=== PATIENT | male | born 1955 | race Caucasian/White ===

== ENCOUNTER 2017-06-02 10:40 | Outpatient (CLI) | payer MEDICARE ==
[2017-06-02] MEDS ORDERED: Gadobenate Dimeglumine 529 MG/1 ML (20ML VIAL) ONE (14:36)
== END 2017-06-02 10:41 | disposition home or self-care (01) ==
LOC: BICMRI 10:40
PROVIDERS: ATTEND Internal Medicine Hematology & Oncology
DX: C71.8 Malignant neoplasm of overlapping sites of brain (principal); G93.89 Other specified disorders of brain; H74.8X2 Other specified disorders of left middle ear and mastoid; Z98.890 Other specified postprocedural states
CPT/HCPCS: 70553; A9579

== ENCOUNTER 2017-09-29 10:21 | Outpatient (CLI) | payer MEDICARE ==
[2017-09-29] MEDS ORDERED: Gadobenate Dimeglumine 529 MG/1 ML (20ML VIAL) ONE (14:45)
== END 2017-09-29 10:22 | disposition home or self-care (01) ==
LOC: BICMRI 10:21
PROVIDERS: ATTEND Internal Medicine Hematology & Oncology
DX: C71.8 Malignant neoplasm of overlapping sites of brain (principal); G93.9 Disorder of brain, unspecified
CPT/HCPCS: 70553; A9579

== ENCOUNTER 2017-10-16 08:00 | Outpatient (CLI) | payer MEDICARE ==
--- NOTE | 2017-10-16 11:28 | PET ---
PET WITH CT WHOLE BODY: CLINICAL HISTORY: Melanoma. The patient also has a history of treated intracranial malignancy. COMPARISON: No prior PET CT imaging available for comparison. RADIOPHARMACEUTICAL: Fluorine-18 FDG 12.3 millicuries IV. FINDINGS: There is appropriate biodistribution of radiotracer activity. There is asymmetric decreased metabolic activity involving the left cerebral hemisphere, compatible w ith sequelae from prior surgery, as well as prior radiation therapy. There are no hypermetabolic masses or hypermetabolic adenopathy identified from the level of the vert ex to the feet. An IVC filter is present, infrarenal in location. There are patchy opacities of the lungs bilaterall y, likely due to respiratory motion artifact. Mild vascular calcification is present. There is osse ous degenerative change without hypermetabolic activity of the skeletal system. IMPRESSION: 1. There is no scintigraphic evidence of hypermetabolic dermal lesions or metastatic disease. 2. Asymmetric decreased metabolism of the left cerebral hemisphere, related to prior surgery/treatme nt of the patient's previously diagnosed intracranial malignancy. POS: VERNON
== END 2017-10-16 08:01 | disposition home or self-care (01) ==
LOC: PET 08:00
PROVIDERS: ATTEND Internal Medicine Hematology & Oncology
DX: C71.8 Malignant neoplasm of overlapping sites of brain (principal); C43.39 Malignant melanoma of other parts of face
CPT/HCPCS: 78816; A9552

== ENCOUNTER 2017-12-09 13:38 | Outpatient (CLI) | payer MEDICARE ==
[~2017-12-09 13:38] MED LIST: Gadobenate Dimeglumine 529 MG/1 ML (20ML VIAL) ONE
--- NOTE | 2017-12-09 16:10 | MRI ---
MRI BRAIN WITH AND WITHOUT CONTRAST: DATE: 12-09-17 HISTORY: 62-year-old male with history of C71.8 malignant neoplasm, overlapping sites of brain. COMPARISON: 10-28-17 at [facility], 09-29-17 from former [facility]. TECHNIQUE: Multiple sequences obtained in axial, sagittal, and coronal planes; pre and post IV injection of gado linium-based contrast agent: 18 ml of MultiHance. FINDINGS: On the 09-29-17 MRI, there was a small focus of restricted diffusion with T2 and FLAIR hyperintensity, with hemosiderin stain, and faint rim enhancement, located in the anterior inferior aspect of the fr ontal lobe superior to the left orbital gyrus and inferior to the frontal horn of the left lateral ve ntricle. By the time of the 10-28-17 MRI, this lesion had contracted slightly. Now, it has contracted more and is difficult to identify on T2 WI and FLAIR. It no longer has an intrinsic T1 shortening. It is demonstrated on the gradient echo sequence by small hemosiderin stain (Axial 14 of 28, Series 4). It has a small, irregularly shaped enhancement, which has contracted since 10-28-17 and contracted mo re since 09-29-17. Again noted are the left temporoparietal old craniotomy changes. Again noted is the architectural dis tortion, extensive T2 and FLAIR hyperintense signal, and associated stellate, lace-like enhancement, involving the anterior portion of the left temporal lobe, with associated chronic distortion of the l eft cerebral peduncle, and ex vacuo dilation of the trigone of the left lateral ventricle. Much of th e T2 hyperintense signal in this area represents accelerated ischemic demyelination due to post radia tion changes. Large, confluent region of asymmetrically left sided accelerated demyelination involvi ng the left caldwell radiata and left semiovale, are again noted and stable. In addition to these T2 hyperintense chronic type changes, there is also moderate T2 hyperintensity i nvolving moderate sized region of left anterior left temporal lobe, associated with thickened brain p arenchyma (best visualized on axial FLAIR Image 9 of 31, Series 2). 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 There is no new areas of abnormal enhancement. No obstructive hydrocephalus. No mass effect or midlin e shift. No extraaxial fluid collection. IMPRESSION: 1. Post-surgical changes of left temporal lobe. 2. Post radiation changes of left temporal lobe and large regions of left caldwell radiata and left buck iovale. 3. The tiny, subcentimeter focus of previous hemorrhage and enhancement, continues to involute. It ma y represent a tiny old lacunar infarction that has undergone hemorrhagic transformation, although the location is unusual for that. The other possibility is that it could have been a tiny metastatic dep osit from the patient's known melanoma that has responded to treatment. 4. Moderate sized region of mild signal abnormality and abnormal parenchymal thickening involving olivia ost the entire anterior portion of the left temporal lobe. 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 MR spectroscopy (performed at a facilit y that performs MRS) would be useful in distinguishing gliomatous tissue from gliosis. 5. No acute findings. MARYJANE Veras POS: VERNON
== END 2017-12-09 13:39 | disposition home or self-care (01) ==
LOC: TBSIIMAG 13:38
PROVIDERS: ATTEND Internal Medicine Hematology & Oncology
DX: C71.8 Malignant neoplasm of overlapping sites of brain (principal); I61.8 Other nontraumatic intracerebral hemorrhage; Z98.890 Other specified postprocedural states; Z92.3 Personal history of irradiation
CPT/HCPCS: 70553; 82565; A9579

== ENCOUNTER 2018-03-18 14:21 | Outpatient (CLI) | payer MEDICARE ==
--- NOTE | 2018-03-18 18:11 | MRI ---
MRI BRAIN WITH AND WITHOUT CONTRAST: DATE: 03/18/18 HISTORY: 62-year-old male with history of C71.8 - malignant neoplasm of overlapping sites of brain. COMPARISON: 12/09/17 TECHNIQUE: Multiple sequences obtained in axial, sagittal, and coronal planes; pre and post IV injection of gado linium-based contrast agent: 18 mL Multihance. FINDINGS: At the anterior inferior aspect of the left frontal lobe just inferior to the frontal horn of the lef t lateral ventricle and slightly superior to the left orbital gyrus, the previously described small, irregularly shaped focus of enhancement and associated tiny hemosiderin stain, has involuted further, and is currently inconspicuous. Again noted are the left temporoparietal old craniotomy changes. Again noted is the architectural dis tortion, extensive T2 and FLAIR hyperintense signal, and associated stellate, lace-like enhancement, involving the anterior portion of the left temporal lobe, with associated chronic architectural disto rtion of the left cerebral peduncle, and ex vacuo dilation of the trigone of the left lateral ventric le. Much of the T2-hyperintense signal in this area represents accelerated ischemic demyelination due to post radiation changes. Large, confluent region of asymmetrically left sided accelerated demyelin ation involving the left caldwell radiata and left centrum semiovale, are again noted, and is stable. In addition to these T2-hyperintense chronic-type changes, there is also moderate T2 hyperintensity d iffusely involving a moderate sized region of the left anterior temporal lobe, associated with thicke joni brain parenchyma (best visualized on axial FLAIR image 9 of 31, series 2, which is suspicious for residual low grade glioma component (astrocytoma)). There is no new area of abnormal enhancement. No obstructive hydrocephalus. No mass effect or midline shift. IMPRESSION: 1. Postsurgical changes of the left temporal lobe. 2. Post radiation changes of the left temporal lobe and large regions of the left caldwell radiata and left centrum semiovale. 3. The tiny, subcentimeter focus of previously described hemorrhage and enhancement in the anter ior inferior aspect of the left frontal lobe, has further involuted (please see the impression of the prior report of 12/09/17). 4. A moderate sized region of diffusely mild signal abnormality and abnormal parenchymal thicken ing involving almost the entire anterior portion of the left temporal lobe. This is suspicious for in dolent, low grade glioma (i.e. grade 2 astrocytoma) tissue component of the original tumor. MR spectr oscopy (performed at a facility that performs [facility]) may be useful to distinguish glioma from gliosis. 5. No new lesions. No evidence of progression of neoplasm since 12/09/17. MARYJANE Veras POS: Elena
== END 2018-03-18 14:22 | disposition home or self-care (01) ==
LOC: TBSIIMAG 14:21
PROVIDERS: ATTEND Internal Medicine Hematology & Oncology
DX: C71.8 Malignant neoplasm of overlapping sites of brain (principal); C43.39 Malignant melanoma of other parts of face; I61.1 Nontraumatic intracerebral hemorrhage in hemisphere, cortical; R93.89 Abnormal findings on diagnostic imaging of other specified body structures; Z98.890 Other specified postprocedural states
CPT/HCPCS: 70553; A9579

== ENCOUNTER 2018-08-05 09:25 | Outpatient (CLI) | payer MEDICARE ==
[2018-08-05] MEDS ORDERED: Gadobenate Dimeglumine 529 MG/1 ML (20ML VIAL) ONE (11:36)
--- NOTE | 2018-08-05 11:55 | MRI ---
MRI BRAIN WITH AND WITHOUT CONTRAST: DATE: 08/05/2018 HISTORY: 62-year-old male with history of intracranial malignant brain tumor C 71.8, malignant neoplasm of ove rlapping sites of brain. 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 COMPARISON: 03/18/2018 TECHNIQUE: Multiplanar, multisequence MRI of the brain performed pre- and post-IV injection of gadolinium based contrast agent. FINDINGS: At the anterior inferior aspect of the left frontal lobe just inferior to the frontal horn of the lef t lateral ventricle and slightly superior to the left orbital gyrus, the previously described small, irregularly-shaped focus of enhancement and associated tiny hemosiderin stain, is inconspicuou s and minimal. It is unchanged since 03/18/2018, and has involuted since 12/09/2017. Again noted are the left temporoparietal old craniotomy changes. Again noted is the architectural dis tortion, extensive T2 and FLAIR hyperintense signal, and associated stellate, lace-like enhancement consistent with scar tissue, involving the anterior portion of the left temporal lobe, with associate d chronic architectural distortion of the left cerebral peduncle, and ex vacuo dilation of the trigone of the left lateral ventricle. Much of the T2 hyperintense signal in this area represent accelerated ischemic demyelination due to p rior external beam radiation therapy. This also applies to the large confluent region of asymmetrically left-sided accelerated demyelination involving the left caldwell radiata and left centru m semiovale. In addition to these T2-hyperintense chronic-type changes, there is also moderate T2-hyperintense sig nal abnormality of a moderate-sized region involving the left anterior temporal lobe., With associated thickening of brain parenchyma. This was previously stated as being suspicious for low-gra de glioma component (astrocytoma), but now it appears possible that it may instead represent very gliotic brain tissue, because there has been interval further enlargement of the gyri of this region, associated with slight decrease in volume of this abnormal brain parenchymal tissue. This is the only interval change compared to 03/18/2018. IMPRESSION: 1) interval shrinkage of the previously concerning left anterior temporal lobe abnormal brain tissue. This suggests that it may be gliotic tissue rather than low-grade gliomatous tissue. 2) no other interval change. 3) postsurgical changes of left temporal lobe. 4) post radiation changes of left temporal lobe and large regions of left cerebral deep white matter. 5) no new lesions.
== END 2018-08-05 09:26 | disposition home or self-care (01) ==
LOC: TBSIIMAG 09:25
PROVIDERS: ATTEND Internal Medicine Hematology & Oncology
DX: C43.39 Malignant melanoma of other parts of face (principal); C71.8 Malignant neoplasm of overlapping sites of brain; R90.89 Other abnormal findings on diagnostic imaging of central nervous system; Z98.890 Other specified postprocedural states
CPT/HCPCS: 70553; A9577

== ENCOUNTER 2019-01-27 09:51 | Outpatient (CLI) | payer MEDICARE ==
--- NOTE | 2019-01-27 11:14 | MRI ---
MRI Brain WITH AND WITHOUT CONTRAST: DATE: 01/27/2019. TIME: 12:00 AM. CLINICAL HISTORY: Malignant neoplasm of brain.. COMPARISON: 08/05/2018. FINDINGS: Postoperative distortion of the left middle cranial fossa is again demonstrated with associated ex va cuo ventricular dilatation and postsurgical encephalomalacia. There is persistent signal alteration of the left temporal lobe, and surrounding enhancement predominantly about the dura in a leptomeninge al distribution with the persistent enhancement invaginating into the surgical bed of the left middle cranial fossa, as well. This has slightly increased, including a new focus of enhancement robert cent the left insular cortex. There is linear enhancement of the right paramedian sol, with surrounding signal alteration, which has developed. Stable increased T2 signal of the cerebral white matter, notably the left cerebral hemisphere. IMPRESSION: 1. Interval development of enhancing focus of the right paramedian sol. 2. Redemonstration of postoperative resection at the left middle cranial fossa with associated signa l alteration of the left temporal lobe and surrounding enhancement, which has slightly increased, including a new focus of enhancement adjacent the left insular cortex. 3. Recommend continued imaging follow-up. Transcribed Date/Time: 01/27/2019 11:23 AM
[2019-01-27] MEDS ORDERED: Magnevist 469MG/ML 20 ML VIAL ONE (11:50)
== END 2019-01-27 09:52 | disposition home or self-care (01) ==
LOC: TBSIIMAG 09:51
PROVIDERS: ATTEND Internal Medicine Hematology & Oncology
DX: C71.8 Malignant neoplasm of overlapping sites of brain (principal); C43.39 Malignant melanoma of other parts of face; R53.1 Weakness; M62.81 Muscle weakness (generalized); Z98.890 Other specified postprocedural states
CPT/HCPCS: 70553; A9579

== ENCOUNTER 2019-02-27 22:30 | Inpatient (IN) | payer MEDICARE ==
[2019-02-27 23:08] LABS: #Eosinphils 0.1 thou/uL (0.0-0.7); #Neutrophils 4.5 thou/uL (1.40-6.50); %Basophils 0.2 % (0.0-1.0); %Eosinophils 1.3 % (0.0-10.0); %Lymphocytes 26.7 % (21.0-51.0); %Monocytes 12.6 % (0.0-10.0); %Neutrophils 59.2 % (42.0-75.0); Hemoglobin 14.4 g/dL (14.0-18.0); Mean Corpuscular HGB CONC 33.2 g/dL (32.0-36.0); Mean Corpuscular Hemoglobin 31.1 pg (27.0-31.0); Mean Corpuscular Volume 93.8 fL (78.0-98.0); Platelet Count 260 thou/uL (130-400); RBC Distribution Width 12.3 % (11.5-14.5); Red Blood Cell (RBC) Count 4.64 mill/uL (4.70-6.10); White Blood Cell (WBC) Count 7.6 thou/uL (4.8-10.8)
[2019-02-27 23:19] LABS: INR-International Normal Ratio 0.9; PTT 26.7 SEC (22.9-36.1); Prothrombin Time 12.3 SEC (12.0-14.7)
--- NOTE | 2019-02-27 23:19 | CT ---
CT Brain WO Con HISTORY: Fall 3 days ago. Declining speech and gait since the fall, history of malignant neoplasm of brain, melanoma. COMPARISON: MRI study of 01/27/2019. FINDINGS: There is generalized ventricular and sulcal prominence. There is asymmetric decreased atten uation to the left periventricular white matter, this appears stable postoperative changes of the left temporal lobe are seen with associated craniotomy change and what appears be dystrophic calcific ations. These changes do not appear to represent hemorrhage. The mastoid air cells show some mucosal change within poorly developed left mastoid. IMPRESSION: No acute intracranial abnormalities. Postop changes related to the left temporal lobe.
[2019-02-27 23:28] LABS: ALT (SGPT) 25 U/L (8-55); AST (SGOT) 17 U/L (5-34); Albumin 3.8 g/dL (3.4-4.8); Alkaline Phosphatase 165 U/L (40-110); Anion Gap 11 mmol/L (10-20); BUN (Urea Nitrogen) 13 mg/dL (8.4-25.7); Bilirubin, Total 0.3 mg/dL (0.2-1.2); Calc. Creatinine Clearance 0 mL/min (70-130); Carbon Dioxide 27 mmol/L (23-31); Chloride 103 mmol/L (98-107); Estimated GFR-MDRD 69; Globulin 2.9 g/dL (2.4-3.5); Glucose 110 mg/dL (80-115); Potassium 4.3 mmol/L (3.5-5.1); Protein, Total 6.7 g/dL (5.8-8.1); Sodium 137 mmol/L (136-145)
--- NOTE | 2019-02-27 23:53 | RAD ---
XR Lumbar Spine 2 Or 3 View HISTORY: Back pain post fall. COMPARISON: None. FINDINGS: The vertebral bodies maintain normal height. Degenerative changes are seen along the course of the spine. There is moderate disc narrowing at L1-2 also mild disc narrowing at L3-4 and L5-S1. Pedicles appear intact. An IVC filter is noted. IMPRESSION: No acute injury.
--- NOTE | 2019-02-27 23:58 | PDOC.FPRHP ---
- History of Present Illness Chief Complaint: Generalized Weakness History of Present Illness: 63yo male presents w/ tonight w/ complaint of increasing generalized weakness. PMHx significant for glioblastoma resected 6 years ago w/ residual speech impairment. Pt had MRI brain last month as normal follow up that showed new sol lesion and new enhancement around the area of his previous resection. They saw pt's neurosurgeon, Dr. Cervantes, last week who saw the images and recommended serial imaging and f/u at that time. states that 5 days ago pt developed acute right sided weakness so they brought him to [facility]. There his sx resolved and MRI was unchanged from . 2 days ago pt was taking a shower sitting in a chair when he slipped off hitting his elbow and his head. Pt followed up w/ his PCP the following day who checked him out and found no acute abnormalities. states that since then pt has been progressively declining in his gait and strength. She states that the pt is normally able to get up and move about on his own but this morning could not even stand up out of a chair prompting her to seek further evaluation. states that she feared the pt had developed a brain bleed from his fall. She also notes pt has been coughing more during and after meals and fears he is aspirating. She denies noticing any focal weakness or acute change in his mental status. Pt denies any complaints at the time of evaluation. He is able to follow commands and can verbally express his name and simple words. ED Course: CT brain and lumbar xray negative for acute findings. Labwork normal. - Allergies/Adverse Reactions Allergies Allergy/AdvReac Type Severity Reaction Status Date / Time No Known Allergies Allergy Verified 02/28/19 03:40 - Home Medications Medication Instructions Recorded Confirmed Type Atorvastatin Calcium 40 mg PO DAILY 12/23/12 02/28/19 History Lisinopril 20 mg PO HS 12/23/12 02/28/19 History Dicyclomine [Bentyl] 10 mg PO BID 02/28/19 02/28/19 History Escitalopram Oxalate 10 mg PO DAILY 02/28/19 02/28/19 History - History PMHx: HTN, depression, HLD, TIA PSHx: Glioblastoma surgery, IVC placement FHx: No significant fmhx Social: Denies any tobacco, alcohol, or illicit drug use - Review of Systems ROS unobtainable: other (limited verbal communication since brain surgery) General: denies: fever/chills Eyes: denies: vision changes, other ENT: denies: nasal congestion, rhinorrhea Respiratory: denies: cough, shortness of breath Cardiovascular: denies: chest pain Gastrointestinal: denies: nausea, vomiting, diarrhea, constipation Genitourinary: denies: polyuria, other Skin: denies: rashes, lesions Musculoskeletal: denies: pain, tenderness Neurological: reports: weakness (generalized). denies: numbness, syncope, seizure Psychological: reports: depression. denies: other - Vital signs BP: 127/75, Pulse: 71, Resp: 22, Temp: 99.8 (Oral), Pain: 6, O2 sat: 96 on ( Room Air) - Physical Exam Constitutional: NAD, well developed HEENT: EOMI, grossly normal vision, grossly normal hearing, MMM Neck: supple, FROM Heart: RRR, normal S1/S2, no murmurs/rubs/gallops, pulses present, no edema Lungs: CTAB, no respiratory distress, good air movement, no rales/rhonchi Abdomen: soft, non-tender, bowel sounds present Musculoskeletal: normal structure, normal tone, ROM grossly normal Neurological: no focal deficit, CN II-XII intact, normal sensation Skin: no rash/lesions, good turgor, capillary refill <2 seconds Heme/Lymphatic: no unusual bruising or bleeding, no purpura, no petechia -Psychiatric: Flat affect, can respond to simple questions and commands, follows commands appropriately, is alert and cooperative FMR H&P: Results - Labs Result Diagrams: 02/27/19 23:00 02/27/19 23:00 Lab results: WBC 7.6 thou/uL (4.8-10.8) 02/27/19 23:00 Hgb 14.4 g/dL (14.0-18.0) 02/27/19 23:00 Hct 43.5 % (42.0-52.0) 02/27/19 23:00 MCV 93.8 fL (78.0-98.0) 02/27/19 23:00 Plt Count 260 thou/uL (130-400) 02/27/19 23:00 Neutrophils % 59.2 % (42.0-75.0) 02/27/19 23:00 Sodium 137 mmol/L (136-145) 02/27/19 23:00 Potassium 4.3 mmol/L (3.5-5.1) 02/27/19 23:00 Chloride 103 mmol/L (98-107) 02/27/19 23:00 Carbon Dioxide 27 mmol/L (23-31) 02/27/19 23:00 BUN 13 mg/dL (8.4-25.7) 02/27/19 23:00 Creatinine 1.08 mg/dL (0.7-1.3) 02/27/19 23:00 Glucose 110 mg/dL (80-115) 02/27/19 23:00 Calcium 9.0 mg/dL (7.8-10.44) 02/27/19 23:00 Total Bilirubin 0.3 mg/dL (0.2-1.2) 02/27/19 23:00 AST 17 U/L (5-34) 02/27/19 23:00 ALT 25 U/L (8-55) 02/27/19 23:00 Alkaline Phosphatase 165 U/L (40-110) H 02/27/19 23:00 Serum Total Protein 6.7 g/dL (5.8-8.1) 02/27/19 23:00 Albumin 3.8 g/dL (3.4-4.8) 02/27/19 23:00 - Radiology Interpretation CT scan - head Status: report reviewed by me (no acute abnormality) Other Status: report reviewed by me (No acute abnormality) Additional comment: Lumbar Xray FMR H&P: A/P - Problem List (1) History of brain cancer Current Visit: Yes Status: Acute Code(s): Z85.841 - PERSONAL HISTORY OF MALIGNANT NEOPLASM OF BRAIN (2) Hypertension Current Visit: Yes Status: Acute Code(s): I10 - ESSENTIAL (PRIMARY) HYPERTENSION (3) Hyperlipidemia Current Visit: Yes Status: Acute Code(s): E78.5 - HYPERLIPIDEMIA, UNSPECIFIED (4) Depressed Current Visit: Yes Status: Acute Code(s): F32.9 - MAJOR DEPRESSIVE DISORDER , SINGLE EPISODE, UNSPECIFIED (5) Generalized weakness Current Visit: Yes Status: Acute Code(s): R53.1 - WEAKNESS - Plan Generalized weakness in setting of recent new brainstem lesion - Progressive onset of generalized weakness throughout the week, coughing while eating - Recent MRI's showing interval development of enhancing focus of the right paramedian sol, w/ signal alteration of left temporal lobe w/ surrounding enhancement in post operative region, new focus of enhancement adjacent to left insular cortex - Admit to stroke obs for continued monitoring - Dysphagia screen and speech consult - Rehab screen ordered - Plan to consult neurosurg, Dr. Cervantes, in the morning for recommendations Chronic Medical Conditions ------- HTN - Continue home lisinopril - Well controlled currently Depression - Continue home escitalopram HLD - Continue home atorvastatin VTE: SCD - Dr. Cervantes has instructed that pt is not to receive anticoagulation Diet: NPO pending dysphagia screen Code: Full Dispo: Admit to stroke obs. ELOS <48hr PCP: Dr. Jose E Chowdhury FMR H&P: Upper Level - Pertinent history 63 yo M with pmh of gbm s/p resection presents for 3 day history of increasing generalized weakness and increasing gait instability. reports he has a noted new enhancing lesion on MRI from January this year and repeat MRI at [facility] showed possible new pontine lesion. Additionally, January MRI reports some increased enhancement surrounding prior GBM resection site, concerning for recurrence. Otherwise, no loss of bowel or bladder function, no focal deficit. No cp, sob. Delayed speech and expressive aphasia is baseline and uncahnged per . - Pertinent findings ROS: As above PE: Gen: NCAT HEENT: PERRLA, EOMI CV: RRR No MRG Resp: Lungs CTA bl no wrr Abd: Soft NTND BSX4 Neuro: CNII-XII intact, strength 4+-5/5 throughout, speech delayed, some expressive aphasia which is unchanged from baseline. Sensation intact. No focal deficit. Extremities: No clubbing cyanosis or edema - Plan Date/Time: 02/27/19 1072 IJermaine DO, have evaluated this patient and agree with findings/ plan as outlined by partner marketing intern resident. Pertinent changes/additions are listed here. 1) Brain lesion with history of GBM - pt has known and increasing sol lesion which would likley explain his worsening gait disturbances and overall generalized weakness. Additionally, had increased enhancement surrounding prior resection site concerning for recurrence , umaware of most recent MRI reuslts - recently had MRI at [facility] on Friday, will request records for review - contact neurosurg in am for further recommendations - admit stroke OBS and consult speech, pt and ot - rehab screen pending 2) HLD: cont home medication 3) HTN: Cont home medication Dispo: Currently stable, will contact neurosurg for recs regarding further imaging, likely repeat MRI. If evidence of expanding lesions or edema inittiate decadron and await neurosurg recs. Addendum - Attending - Attending Attestation Date/Time: 02/28/19 [id number] I personally evaluated the patient and discussed the management with Dr. Santos. I agree with the History, Examination, Assessment and Plan documented above with any addition or exceptions noted below. The patient has a history of glioblastoma resected several years ago and new brain lesions found in the last week. His notes that he has been getting progressively weaker to the point he could rise from a chair. He presents with generalized weakness. Pt is very sleepy this morning and is not following commands. Unable to obtain neuro exam. Will discuss with neurosurgery and consult therapy services.
[2019-02-28] MEDS ORDERED: Acetaminophen 325 MG TAB PO PRN (02:45)
[2019-02-28 05:36] LABS: Cardiac Risk 2.9 (Less than 4.5)
[2019-02-28] MEDS ORDERED: Lactated Ringer's 1,000 ML IV SCH (11:30)
--- NOTE | 2019-03-01 06:26 | PDOC.FM ---
- Subjective Subjective: Patient lying in bed this morning, he is able to state his name and recognize his . Not able to state year. Patient is newly incontinent, now unable to bear weight on his legs. Dr. Ray saw this morning and recommended additional imaging but not a surgical candidate at this time. Dr. Leal also saw this morning and will continue seeing patient as outpatient but nothing acute for oncology to follow. - Objective Vital Signs & Weight: Vital Signs (12 hours) Temp Pulse Resp BP BP Pulse Ox 03/01/19 04:30 62 18 126/80 95 02/28/19 19:25 98.7 F 73 16 113/69 92 L Weight Weight 87.543 kg I&O: 02/27/19 02/28/19 03/01/19 06:59 06:59 06:59 Intake Total 800 Balance 800 Result Diagrams: 02/27/19 23:00 02/27/19 23:00 Phys Exam - Physical Examination Constitutional: NAD HEENT: moist MMs Neck: no JVD, supple Respiratory: no wheezing, no rhonchi, clear to auscultation bilateral Cardiovascular: RRR, no significant murmur Gastrointestinal: soft, no distention, positive bowel sounds Musculoskeletal: no edema, pulses present strength 4/5 in extremities, unable to bear weight, slowed broken speech Deviation from normal: flat affect, oriented to person Skin: no rash, normal turgor Dx/Plan (1) Depressed Code(s): F32.9 - MAJOR DEPRESSIVE DISORDER, SINGLE EPISODE, UNSPECIFIED Status : Acute Qualifiers: Depression Type: major depressive disorder Major depression recurrence: unspecified whether recurrent Active/Remission status: remission status unspecified Qualified Code(s): F32.9 - Major depressive disorder, single episode, unspecified (2) Generalized weakness Code(s): R53.1 - WEAKNESS Status: Acute (3) History of brain cancer Code(s): Z85.841 - PERSONAL HISTORY OF MALIGNANT NEOPLASM OF BRAIN Status: Acute (4) Hyperlipidemia Code(s): E78.5 - HYPERLIPIDEMIA, UNSPECIFIED Status: Acute Qualifiers: Hyperlipidemia type: mixed hyperlipidemia Qualified Code(s): E78.2 - Mixed hyperlipidemia (5) Hypertension Code(s): I10 - ESSENTIAL (PRIMARY) HYPERTENSION Status: Acute Qualifiers: Hypertension type: unspecified Qualified Code(s): I10 - Essential (primary ) hypertension - Plan Plan: Patient is a 63 yo male with hx of Glioblastoma with new brain lesion sites who presents with new acute onset weakness: #Generalized weakness in setting of recent new brainstem lesion - Progressive onset of generalized weakness throughout the week, now coughing while eating - Patient has been followed by Dr. Cervantes but he is out of town this week - Recent MRI's showing interval development of enhancing focus of the right paramedian sol, w/ signal alteration of left temporal lobe w/ surrounding enhancement in post operative region, new focus of enhancement adjacent to left insular cortex - Obs on stroke with neuro checks - Dysphagia screen and Speech consult, appreciate recs--has moderate motor- planning dysphagia that is predicted might worsen given new brainstem lesion, recommended puree and nectar thickened liquids with diet order placed - Rehab screen ordered - Consult neurosurgery-Dr. Ray, appreciate recs--no surgical indication at this time, needs additional imaging of MRI w/w/o contrast for brain and spine - Oncology, Dr. Leal seen and recommends calling Neurology, if nothing can be done at this facility then recommends transfer to [facility] in [place] , patient has previously seen Dr. Jaya Aguirre in the [facility] - Will consult Neurology, Dr. Campos, tele-neuro - Pending Neurology recommendations, patient may need transfer to another facility #HTN - Continue home lisinopril - Well controlled currently #Depression - Continue home escitalopram #HLD - Continue home atorvastatin VTE: SCD - Dr. Cervantes has instructed that pt is not to receive anticoagulation Diet: Regular with puree & nectar thickened liquids per speech recs Code: Full Dispo: Stable, admitted to observation on stroke unit. Await Neurology recommendations today and rehab screen. Expect discharge in <48hr. PCP: Dr. Jose E Chowdhury Addendum - Attending - Attending Attestation Date/Time: 03/01/19 6724 I personally evaluated the patient and discussed the management with Dr. Cortez. I agree with the History, Examination, Assessment and Plan documented above with any addition or exceptions noted below. Patient has new incontinence. Dr. Ray saw the patient this morning and noted there were no surgical options available. He did recommend MRI brain and spine. MRI brain shows progression of lesions. Dr. Leal and Dr. Gardner are being consulted as is palliative and neurology. Decadron is being started.
--- NOTE | 2019-03-01 07:49 | CON ---
DATE OF CONSULTATION: REASON FOR EVALUATION: Weakness. HISTORY OF PRESENT ILLNESS: Herbert Loaiza is well known to Dr. Cervantes in our Neurosurgery Clinic. Six years ago, he had craniotomy for resection of a temporal glioblastoma. He was followed by Dr. Leal and Dr. Gardner for chemo and radiation therapy respectively. Mr. Loaiza did remarkably well from his treatment. He was left with some dysnomia and some expressive greater than receptive language dysfunction, but he has been relatively independent until quite recently. In January, some enhancement in the site of the surgical field was seen, but also a new smaller lesion in the sol. Last week, a fall resulted in admission to [facility] on the subsequent discharge. He was not 100% back to his pre-fall baseline, but he was able to get himself out of a chair and perform most of his activities of daily living. However, that has deteriorated. He is having difficulty swallowing. He has such weakness and unsteadiness in the legs that he cannot get himself out of the chair and even with assistance. It becomes unsafe and for this reason, he was brought back to the hospital. CT examination did not reveal any subdural hematoma from the fall, but it does not help in assessing any differences compared to prior MR images. No steroids or Keppra were started. PAST MEDICAL HISTORY: Hypertension, depression, hyperlipidemia, TIA, and glioblastoma. PAST SURGICAL HISTORY: Craniotomy and IVC placement. MEDICATIONS: 1. Atorvastatin. 2. Lisinopril. 3. Dicyclomine. 4. Escitalopram. ALLERGIES: NO KNOWN DRUG ALLERGIES. SOCIAL HISTORY: Mr. Loaiza is a nonsmoker. Does not use alcohol or illicit drugs. FAMILY HISTORY: No family history of glioblastoma. REVIEW OF SYSTEMS: Review symptoms not obtainable this morning. PHYSICAL EXAMINATION: I saw Mr. Loaiza in his hospital room. He is resting comfortably on his CPAP machine. I take it off and he can speak, but it is halting and he has difficulty with word production. He has good comprehension. Cranial nerves are grossly intact. There is some slowing of motor function in all extremities including the arms and legs, but static strength looks relatively well preserved. He seems to be able to feel both sides as well. I did not get him out of bed to assess his balance and I think he would be markedly off-balance given the slowness of which he is moving. IMAGING FINDINGS: A noncontrast CT does not reveal subdural hematoma. MRI scan from January was as noted above. No new MRI scans have been done. ASSESSMENT: 1. Glioblastoma with progressive weakness and dysphagia. 2. Long-standing speech disturbance since craniotomy 6 years ago. I recommend that Mr. Loaiza have contrast imaging of the thoracic and cervical spine as well as the brain. We will see whether the glioblastoma has shown up in the spinal cord or if the brainstem lesion is significantly different than it was on the scan done 1 month ago. Unfortunately, surgical intervention for this will not be possible. We will have to talk to Radiation Oncology about possibly using radiation therapy. I do not believe the temporal lobe enhancement is symptomatic currently. Job ID: [id number]
[2019-03-01] MEDS: Atorvastatin Calcium 20 MG TAB PO SCH (09:33)
[2019-03-01] MEDS: Escitalopram Oxalate 10 mg Tablet PO SCH (09:33)
[2019-03-01] MEDS: Dicyclomine 10 MG CAP PO SCH ×2 (09:33→20:54)
--- NOTE | 2019-03-01 12:01 | MRI ---
MRI LUMBAR SPINE WITH AND WITHOUT CONTRAST: HISTORY: Neuro deficit. Glioblastoma. COMPARISON: None. FINDINGS: Conus medullaris is normal in morphology and terminates at the T12 level. There is mild multilevel degenerative change of the lumbar spine with multilevel disc osteophyte form ation resulting in mild multilevel ventral thecal sac effacement although no high grade central canal stenosis. Lateralized disc osteophyte formation and multilevel facet hypertrophy result in mild multilevel neural foraminal narrowing throughout the lumbar spine bilaterally. Post contrast imaging reveals no mass-producing enhancement of the vertebral canal. No intramedullary , pathologic enhancement of conus medullaris and no pathologic, nodular enhancement along the nerve roots of cauda equina. No acute marrow edema. IMPRESSION: No MRI evidence of metastatic disease involving the lumbar spine. Transcribed Date/Time: 03/01/2019 12:22 PM
[2019-03-01] MEDS ORDERED: Dexamethasone 12 MG in Sodium Chloride 0.9% 50 ML IVPB SCH (13:30)
--- NOTE | 2019-03-01 13:30 | MRI ---
MRI BRAIN WITH AND WITHOUT CONTRAST: Date: 03/01/19 INDICATION: Glioblastoma. Question new metastasis. New deficits. Comparison made to recent exam of 01/27/19. FINDINGS: Postoperative changes in the left middle cranial fossa appear stable with surrounding enhancement unc hanged. There is now new enhancement seen in the brainstem and in the right cerebellar peduncle when compared to the recent exam. The larger area of enhancement now seen in the right cerebellar peduncle measure s up to 2.2 cm AP dimension. There are numerous smaller surrounding foci of enhancement within the br ainstem beginning inferiorly at the medulla and extending into the midbrain and involving the sol an d extending into the cerebral peduncles on the left. This brainstem enhancement has significantly inc reased since 01/27/19. IMPRESSION: Significant increase in brainstem lesions when compared to 01/27/19 indicating progression of metasta tic disease. POS: [facility]
--- NOTE | 2019-03-01 13:34 | MRI ---
MRI CERVICAL SPINE WITH AND WITHOUT CONTRAST: Date: 03/01/19 INDICATION: Glioblastoma. New deficits. Suspect new metastasis. FINDINGS: Cervical vertebra maintain normal height and alignment. Degenerative disc changes are seen with loss of disc space at C4-5 and C5-6. Posterior disc bulge and spondylosis at C3-4 abut the anterior cord. Minimal bulge at C4-5 effaces the anterior subarachnoid space. At C5-6, mild disc bulge and spondylosis efface the anterior subarachnoid space. No abnormal enhancement within the cord. No evidence of metastatic disease in the cervical cord. There is abnormal enhancement in the brainstem only partially imaged on this exam. This is described on MRI of brain which shows new metastatic deposits in the brainstem. IMPRESSION: 1. Mild spondylitic changes, most prominent at C3-4, C4-5, and C5-6 as described above. No abnormal cord enhancement. 2. There is enhancement in the brainstem only partially imaged on this exam. See MRI brain report. POS: [facility]
--- NOTE | 2019-03-01 13:36 | MRI ---
MRI THORACIC SPINE WITH AND WITHOUT CONTRAST: INDICATIONS: Glioblastoma. New onset deficits. Question new metastasis. FINDINGS: The thoracic vertebrae maintain normal height and alignment. There is normal signal. There are scatte red vertebral body hemangiomas. No evidence of vertebral body or osseous metastasis. No significant disk bulge or protrusion. Asymmetric disk bulge paracentrally on the left at T10-T11 f lattens the anterior thecal sac on t he left but does not impinge on the cord and there is no evidenc e of central canal stenosis. No other significant disk bulge or protrusion. The thoracic cord signal is normal. There is no evidence of cord enhancement. IMPRESSION: Unremarkable MRI of the thoracic spine. POS: [facility]
--- NOTE | 2019-03-01 14:07 | PRG ---
DATE OF SERVICE: 03/01/2019 I followed up with the Fadia's family after MR imaging was done. Thankfully, the cervical and thoracic spine look clear of tumor. Unfortunately, the brainstem looks worse than it did a few weeks ago. It looks even worse than it did last week at the [facility]. There is an increase in size of the pontine lesions. There are mid brain lesions. There is a lesion on the peeled surface of the brainstem. Both halves of the brainstem are involved and this is markedly worse than it has been. There is enhancement at the operative site as well. I told Fadia's family that this is likely dissemination of glioma. There even could be some gliomatous meningitis. There is a very tiny chance this is a lymphoma. 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 I have no surgical intervention to offer, unfortunately. The biopsy is high risk, I think the reward is very little. An LP can be obtained and at least 20 mL should be removed if not 30, and then he can be kept flat thereafter. All the fluid needs to be sent for cytology. This is in order to the appease radiation in case that is an option. I think the likelihood of glioma is 98% and lymphoma is 2% or less. The daughter had questions about what life would hold in the coming days and weeks. If elected not to have this treated, then I think he will lose any protection of his airway and have pneumonia. To forestall this, tracheostomy could be inserted and a gastrostomy, but it would not, in my view, change the final outcome. Radiation could forestall the outcome if he is a candidate, but I will leave that decision to the family and Radiation/Oncology. Job ID: [id number]
[2019-03-01] MEDS ORDERED: Dexamethasone 20 MG in Sodium Chloride 0.9% 50 ML IVPB SCH (16:00)
--- NOTE | 2019-03-01 16:13 | PDOC.PALCO ---
Palliative Care Consult - Consult Details Requesting Physician: Dr Cortez Reason for Consult: goals of care, advance directives assistance Family Members Present: and daughter - Allergies Allergies/Adverse Reactions: Allergies Allergy/AdvReac Type Severity Reaction Status Date / Time No Known Allergies Allergy Verified 02/28/19 03:40 - Objective Vital Signs: Vital Signs - Most Recent Temp Pulse Resp BP Pulse Ox 97.4 F L 72 14 132/93 H 92 L 03/01/19 12:35 03/01/19 12:35 03/01/19 12:35 03/01/19 12:35 03/01/19 12:35 - Plan/Recommendations Plan: Visited with Patient, , and one of his three daughters. Patient met his at a [place] outside of [place], they and have three daughters. Discussed goal of care that is in relation to his current terminal condition. Family is wishing to seek comfort measures through hospice care in the home setting. Dr Cortez reinforced disease trajectory and possible occurrences. Family requested [facility] and choice letter was signed and left on the patient chart. [60] minutes spent on this encounter with >50% of the time in counseling and coordination of care. Thank you for this very appropriate consult.
[2019-03-01] MEDS ORDERED: Scopolamine 1.5 mg/72 hour Patch TD SCH (17:30)
[2019-03-01] MEDS: Dexamethasone 4 mg/ml Vial SLOW IVP SCH (20:53)
--- NOTE | 2019-03-01 21:36 | CON ---
DATE OF CONSULTATION: REASON FOR CONSULT: Glioblastoma multiforme. HISTORY OF PRESENT ILLNESS: Mr. Loaiza is a pleasant 63-year-old gentleman who has been in remission for glioblastoma multiforme since 2014. He had a routine MRI done in January, which showed a new enhancing focus in the right paramedian sol. He was asymptomatic at this time. Over the past week, he began to have stroke-like symptoms and presented to the emergency room for evaluation. He had a repeat brain MRI on this morning, which showed a significant increase in the brainstem lesion now measured 2.2 cm. He is having dysphagia and mild confusion. There was a small chance that this was lymphoma, so an LP was ordered to rule this out. The patient was seen with Dr. Leal. PAST MEDICAL HISTORY: 1. Glioblastoma multiforme diagnosed in 2014. 2. High cholesterol. 3. Hypertension. PAST SURGICAL HISTORY: Craniotomy. ALLERGIES: NO KNOWN DRUG ALLERGIES. HOME MEDICATIONS: 1. Atorvastatin. 2. Bentyl. 3. Escitalopram. 4. Lisinopril. FAMILY HISTORY: Noncontributory. SOCIAL HISTORY: , has 3 children. Lives with his spouse. No alcohol, tobacco, or illicit drug use. REVIEW OF SYSTEMS: A 10-point review of systems is negative except for noted in HPI. PHYSICAL EXAMINATION: VITAL SIGNS: Temperature is 97.4, pulse is 72, respiratory rate 14, blood pressure is 132/93. He is 92% on room air. GENERAL: This is a well-developed, well-nourished male, in no acute distress. HEENT: Normocephalic, atraumatic. Pupils are equal and reactive to light. CV: Regular rate and rhythm. LUNGS: Clear. ABDOMEN: Soft. EXTREMITIES: There is no clubbing or cyanosis. SKIN: No rash. NEUROLOGIC: He has some aphasia and dysphagia. PERTINENT LABS AND X-RAYS: Current WBCs are 7.6, hemoglobin 14.4, hematocrit 43.5, platelet count 260,000. PT is 12.3, INR 0.9, PTT is 26.7. Sodium 137, potassium 4.3, chloride 103, CO2 is 27, BUN is 13, creatinine 1.08, calcium 9, bilirubin 0.3, AST 17, ALT is 25, alkaline phosphatase is 165. Serum total protein is 6.7, albumin 3.8, globulin 2.9. ASSESSMENT: Glioblastoma multiforme with recent progression. DISCUSSION: Case was discussed in detail by Dr. Leal and family. Over 30 minutes was spent explaining the situation and discussing possible options. Family feels that although there is a small chance this could be lymphoma, the patient would not want to have radiation and chemotherapy. Also discussed with the patient that high risk that he may have difficulty breathing and be placed on life support. He has been made DNR. Family would like to take the patient home. Order Case Management for assistance with setting up hospice. LP has been canceled. All family questions and the patient's questions have been answered. Thank you for the consult on this pleasant gentleman. Job ID: [id number]
--- NOTE | 2019-03-01 22:12 | CON ---
DATE OF CONSULTATION: 03/01/2019 REASON FOR CONSULTATION: Mr. Loaiza is a 63-year-old gentleman with a previous history of a glioblastoma with a suspected possible recurrence of his disease. HISTORY OF PRESENT ILLNESS: Mr. Loaiza is known to me. He was treated towards the end of 2012 with concurrent chemotherapy and radiation following surgical resection of a left temporal glioblastoma. He was then on maintenance Temodar. He has done well since that time until recently. About a month ago, he had an MRI of the brain, which showed a small little area of contrast enhancement in the brainstem of unknown significance. He also had some contrast in the temporal lobe that was unchanged. However, over the past week or so things have declined quite dramatically neurologically. He has had more difficulty with the speech and also had difficulty with walking and with swallowing. Apparently had an MRI over at [facility] and then when he continued to decline after that he had an MRI after admission here at [facility]. The MRI did show enhancement along the brain stem and right cerebellar peduncle compared to previous exam. The largest area measured 2.2 cm. There were numerous smaller surrounding foci of enhancement beginning inferiorly at the medulla and extending into the sol and cerebral peduncle on the left. He was seen by Dr. Ray who did not feel that he could safely do a biopsy or that surgery was indicated. He did have an MRI of the cervical, thoracic, and lumbar spine, which were negative. I have now been asked to see him to discuss his options for treatment. He will be beginning steroids in the near future. He does not have any complaints at the present time. He still has some difficulty with expressive aphasia. PAST MEDICAL HISTORY: 1. Glioblastoma as mentioned above. 2. Hypertension. 3. History of inferior vena cava filter placement. 4. Possible TIA. 5. Hypercholesterolemia. MEDICATIONS: Lipitor, Bentyl, Lexapro, and lisinopril. ALLERGIES: NO KNOWN MEDICAL ALLERGIES. SOCIAL HISTORY: He has no tobacco or alcohol use. He lives with his in [place], [place]. FAMILY HISTORY: Negative for glioblastoma. REVIEW OF SYSTEMS: A 10-system review of systems is otherwise negative. PHYSICAL EXAMINATION: VITAL SIGNS: Height 5 feet 10 inches, weight 193 pounds, blood pressure is 137/ 88, pulse is 74, respirations are 14, temperature is 98.5, O2 saturation 92% on room air. GENERAL: He is alert and oriented and in no apparent distress. He is well developed and well nourished. Karnofsky performance status is 30%. HEENT: Eyes pupils equal, round, and reactive to light. Extraocular movements are intact. ENT oral cavity and oropharynx are normal without lesion or erythema. Gingiva is intact. NECK: Supple without preauricular, submandibular, cervical, or supraclavicular adenopathy. No thyromegaly. Larynx midline. LUNGS: Breathing nonlabored. Clear to auscultation and percussion. CARDIOVASCULAR: Heart regular rate without murmur. No lower extremity edema. LYMPHATIC: No axillary adenopathy. ABDOMEN: Soft, nontender, nondistended without mass or hepatosplenomegaly. Liver percusses normal size. SKIN: Without rash or purpura. NEUROLOGIC: Cranial nerves 2 through 12 are grossly intact. Motor strength is good in both upper extremities. He has bilateral lower extremity weakness, although he can move his lower extremities. Reflexes are normal and symmetrical. Gait was not tested. RADIOLOGIC DATA: MRI of the brain as well as of the cervical, thoracic, lumbar spine were all personally reviewed. He has some mild enhancement in the left temporal lobe, which appears not to be changed. He has several nodular areas of enhancement along the cerebellum and cerebral peduncles that are new and were not basically on his MRI a month ago. There was a dramatic change. His MRI from 1 month ago was personally reviewed also. He has no evidence of metastasis or cord lesion. LABORATORY DATA: CBC revealed a white blood count of 7600, hemoglobin of 14.4, hematocrit of 43.5, platelet count 260,000. Chemistry group showed normal electrolytes. His alkaline phosphatase was mildly elevated at 165. ASSESSMENT: Mr. 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 He certainly has nodular enhancement along the brainstem and cerebral peduncles, which is concerning for some sort of malignancy, although the malignant process is not for certain. Possibilities would be some sort of recurrence of his glioblastoma such as a meningeal recurrence of his glioblastoma, although that is unusual. Another possibility would be a lymphoma , but I think that would be unusual also. I do not think this is likely to be infection or stroke. PLAN: I have discussed the case with Dr. Leal and I have also discussed the situation with Mr. Loaiza and his family. I explained the unusualness of what we see on the MRI. Most likely this is some sort of recurrence of his glioblastoma, although again the pattern of failure seems to be somewhat unusual. Nevertheless, the patient's performance status has dramatically declined in the past week. If this represents a recurrence of his glioblastoma with his poor performance status, there is really little options that we could do in terms of treatment. He would likely best be managed with steroids that will soon be initiated and hospice care. Consideration could be given to a lumbar puncture to see, if this could be a lymphoma or some other process. The purpose of doing a lumbar puncture would be to establish tissue diagnosis if possible and to see if he has anything that might be treatable. I think lymphoma is a less likely possibility. The patient and his were not inclined towards doing a lumbar puncture at this time. They are amenable to starting him on steroids, which has already been ordered and will soon be initiated. The possibility exists that if this were a lymphoma that his symptoms might dramatically improve with the course of steroids. It is my understanding that the family hopes to take him home soon on hospice care. Should his symptoms dramatically improve with the initiation of steroids, then we could reconsider our treatment options, because then something like lymphoma becomes more of a possibility in which case doing some radiation therapy might make sense. My suspicion is that the steroids will likely not change his symptoms that much, although it may provide him some comfort care. In that case, then his best option is the hospice care which will soon be initiated. The time was taken to answer all the questions of the patient and his family. The and the patient are very comfortable with this approach. They will contact Dr. Leal or myself should things dramatically improve on the steroids. Thank you for this interesting consultation. Job ID: [id number] [facility]
[2019-03-02] MEDS: Dexamethasone 4 mg/ml Vial SLOW IVP SCH ×2 (01:33→09:38)
--- NOTE | 2019-03-02 06:05 | PDOC.FM ---
- Subjective Subjective: Patient sleeping this morning. His is at bedside and states the patient did well during the night. He continues to be weak, requiring 2-person assist to stand and not walking. Continues to have difficulties with speech and swallowing. - Objective Vital Signs & Weight: Vital Signs (12 hours) Temp Pulse Resp BP Pulse Ox 03/02/19 04:18 97.9 F 73 16 123/77 93 L 03/01/19 20:00 16 93 L 03/01/19 19:40 98.5 F 74 13 128/85 90 L Weight Weight 87.543 kg I&O: 02/28/19 03/01/19 03/02/19 06:59 06:59 06:59 Intake Total 800 530 Output Total 300 Balance 800 230 Result Diagrams: 02/27/19 23:00 02/27/19 23:00 Phys Exam - Physical Examination Constitutional: NAD HEENT: moist MMs Neck: supple Respiratory: clear to auscultation bilateral Cardiovascular: RRR, no significant murmur Gastrointestinal: soft, positive bowel sounds Musculoskeletal: no edema, pulses present Skin: no rash, normal turgor Dx/Plan (1) Depressed Code(s): F32.9 - MAJOR DEPRESSIVE DISORDER, SINGLE EPISODE, UNSPECIFIED Status : Acute Qualifiers: Depression Type: major depressive disorder Major depression recurrence: unspecified whether recurrent Active/Remission status: remission status unspecified Qualified Code(s): F32.9 - Major depressive disorder, single episode, unspecified (2) Generalized weakness Code(s): R53.1 - WEAKNESS Status: Acute (3) History of brain cancer Code(s): Z85.841 - PERSONAL HISTORY OF MALIGNANT NEOPLASM OF BRAIN Status: Acute (4) Hyperlipidemia Code(s): E78.5 - HYPERLIPIDEMIA, UNSPECIFIED Status: Acute Qualifiers: Hyperlipidemia type: mixed hyperlipidemia Qualified Code(s): E78.2 - Mixed hyperlipidemia (5) Hypertension Code(s): I10 - ESSENTIAL (PRIMARY) HYPERTENSION Status: Acute Qualifiers: Hypertension type: unspecified Qualified Code(s): I10 - Essential (primary ) hypertension - Plan Plan: Patient is a 63 yo male with hx of Glioblastoma with new brain lesion sites who presents with new acute onset weakness: #Generalized weakness in setting of recent new brainstem lesion--likely Glioblastoma recurrence - Progressive onset of generalized weakness throughout the week, now coughing while eating - Patient has been followed by Dr. Cervantes but he is out of town this week, will be seen by Dr. Ray - Recent MRI's showing interval development of enhancing focus of the right paramedian sol, w/ signal alteration of left temporal lobe w/ surrounding enhancement in post operative region, new focus of enhancement adjacent to left insular cortex - Inpatient on stroke with neuro checks - Dysphagia screen and Speech consult, appreciate recs--has moderate motor- planning dysphagia that is predicted might worsen given new brainstem lesion, recommended puree and nectar thickened liquids with diet order placed--as of patient continued to have progressive dysphagia and was made NPO - Rehab screen ordered-family declined and prefers home with home hospice - Consult neurosurgery-Dr. 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 Leal--recommends starting 20 mg IV Decadron x 1, then continue at 6 mg q6h - Consult Rad-Onc, Dr. Gardner--recommends continuing steroids, feels that this is most likely an unusual recurrence of the Glioblastoma, family will contact him if any significant improvement with the steroids otherwise not really any other treatment options at this time #HTN - Continue home lisinopril - Well controlled currently #Depression - Continue home escitalopram #HLD - Continue home atorvastatin VTE: SCD - Dr. Cervantes has instructed that pt is not to receive anticoagulation Diet: NPO Code status: Full Dispo: Stable, admitted to inpatient on stroke unit. Will continue Decadron. CM arranging for hospice. Expect discharge later today. Will continue oral steroids at home for next 48 hrs with hospice planning to take over steroid management afterward. PCP: Dr. Jose E Chowdhury Addendum - Attending - Attending Attestation Date/Time: 03/02/19 1002 I personally evaluated the patient and discussed the management with Dr. Cortez. I agree with the History, Examination, Assessment and Plan documented above with any addition or exceptions noted below. Completed OOH-DNR. Patient will be discharged with hospice. He will continue steroids. Transport is being arranged.
[2019-03-02] MEDS: Escitalopram Oxalate 10 mg Tablet PO SCH (09:12)
[2019-03-02] MEDS: Dicyclomine 10 MG CAP PO SCH (09:13)
[2019-03-02] MEDS: Atorvastatin Calcium 20 MG TAB PO SCH (09:14)
[2019-03-02 12:54] VITALS: BP 133/77; TEMP 97.5
--- NOTE | 2019-03-04 08:04 | DIS ---
DATE OF ADMISSION: 03/01/2019 DATE OF DISCHARGE: 03/02/2019 ADMITTING ATTENDING: Ludy Heard MD DISCHARGE ATTENDING: Ludy Heard MD CONSULTS: 1. Case Management. 2. Neurosurgery, Dr. Ray. 3. Oncology, Dr. Leal. 4. Radiology/Oncology, Dr. Gardner. 5. Palliative Care, Susan Holland. 6. Physical Therapy. 7. Occupational Therapy. 8. Speech Therapy. PROCEDURES: 1. Brain CT on February 27, 2019: No acute intracranial abnormalities. No evidence of stroke. Postop changes related to the left temporal lobe. 2. Lumbar spine x-ray on February 27, 2019: No acute injury. 3. Brain MRI on March 01, 2019: Significant increase in brainstem lesions when compared to MRI from January 27, 2019, indicating progression of metastatic disease. Postoperative changes in the left middle cranial fossa appear stable with surrounding enhancement, unchanged. There is now new enhancement seen in the brainstem and in the right cerebellar peduncle when compared to the recent exam. The larger area of enhancement now seen in the right cerebellar peduncle measures up to 2.2 cm, AP dimension. There are numerous smaller surrounding foci of enhancement within the brainstem beginning inferiorly at the medulla and extending into the midbrain and involving the sol and extending into the cerebral peduncles on the left. This brainstem enhancement has significantly increased since January 27, 2019. 4. Cervical spine MRI on March 01, 2019: Mild spondylitic changes, most prominent at C3-C4, C4-C5, and C5-C6 as described on full report. No abnormal cord enhancement. 5. Thoracic spine MRI on March 01, 2019: Unremarkable. 6. Lumbar spine MRI on March 01, 2019: No evidence of metastatic disease involving the lumbar spine. PRIMARY DIAGNOSIS: Generalized weakness in the setting of recurrence of glioblastoma of the brainstem. SECONDARY DIAGNOSES: 1. Hypertension. 2. Depression. 3. Hyperlipidemia. DISCHARGE MEDICATIONS: 1. Dexamethasone 6 mg p.o. q.6 hours. 2. Scopolamine 1.5 mg topical patch q.3 days. 3. Dicyclomine 10 mg p.o. b.i.d. 4. Escitalopram oxalate 10 mg p.o. daily. 5. Atorvastatin 40 mg p.o. daily. 6. Lisinopril 20 mg p.o. at bedtime. DISCONTINUED MEDICATIONS: None. HPI/HOSPITAL COURSE: The patient is a 63-year-old male, who presents to the emergency department at [facility] with his with complaints of increasing generalized weakness. The patient's past medical history is significant for glioblastoma, which was resected 6 years ago, for which he has residual speech impairment. The patient had an MRI of the brain on January 27, 2019 as part of his routine followup that showed a new sol lesion and new enhancement around the area of his previous resection. The patient says he saw his neurosurgeon, Dr. Cervantes last week, who reviewed the images and recommended serial imaging and followup in 3 months. The patient's stated that 5 days ago the patient developed acute right-sided weakness and so he was brought to [facility] ED. There, his symptoms resolved and there was minimal change of his brain MRI at that facility when compared to the one from January. Then, 2 days ago, the patient was taking a shower and sitting in a chair when he slipped off, hitting his elbow and his head. The patient followed up with his PCP the following day, who checked him out and found no acute abnormalities. The patient's states that since then, the patient has been progressively declining in his gait and strength. She states that the patient is normally able to get up and move about on his own, but this morning could not stand up out of a chair, prompting her to seek further evaluation. The states that she fears the patient has developed a brain bleed from his fall. The also notes that the patient has been coughing more during and after meals and fears he is aspirating. The denies noticing any focal weakness or acute changes in mental status. The patient denies any complaints at the time of his evaluation. He is able to follow commands. He can verbally express his name and simple words. In the emergency department, CT of the brain and lumbar x-ray were negative for acute findings. The patient's lab work was grossly normal. The patient was admitted to observation on the stroke unit for further evaluation and monitoring. Consults were placed for speech, physical therapy, and occupational therapy. His home medications were continued. On the morning of March 01, the patient had additional acute changes through the night. The patient was newly incontinent and was unable to bear weight. He also continued to become rapidly more weaker. It was also noted that his speech was rapidly changing and he was now choking when trying to swallow anything. At this point, Neurosurgery, Dr. Ray was consulted and he recommended additional imaging with MRI of the brain and entire spine. He also recommended consulting Oncology, Dr. Leal. Dr. Leal came and saw the patient and wanted a Neurology consult. She stated that she did not have any recommendations at that point, but did say if Neurology could not do anything then, transfer the patient to [facility] in [place], where he has previously seen Dr. Jaya Aguirre in the [place], [place]. Later in the day, the patient had MRI imaging performed. Dr. Ray was able to review the imaging from January, last week at the [facility], and today's imaging and compare all of this. He stated that the cervical, thoracic, and lumbar spine looked clear of any tumor or metastases. Unfortunately, the brain stem looked worse than it did in January. It even looked worse than it did last week at [facility]. There was an increase in size of the sol lesions. There were new midbrain lesions. There was a lesion on the peeled surface of the brainstem. Both halves of the brainstem are involved and this is markedly worse than it has been. There was also enhancement continued at the operative site as well. Dr. 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 There was a remote 2% or less chance that this was a lymphoma. There was no surgical intervention to offer as the biopsy is high-risk. An LP could be performed to determine if this is a glioblastoma versus lymphoma, however, this would also be very high risk. The patient's daughter had questions about what the patient's life would hold in the coming days to weeks. Dr. Ray counseled then that if the patient elected to not have it treated, then the patient will start to lose protection of his airway and could developed pneumonia. To forestall this, a tracheostomy could be inserted at the gastrostomy, but it would not change the final outcome. Radiation could forestall the outcome if the patient is a candidate and Dr. Ray recommended consulting Radiation Oncology for this. Later in the day, Dr. Leal and her REFRIGERATION MANAGER, Misty Marcum, returned to discuss the findings with the patient. Dr. Leal recommended starting the patient with a loading dose of 20 mg of Decadron IV followed by 6 mg of Decadron q.6 hours to be continued for the foreseeable future. This will be for symptomatic management. Dr. Leal offered for the patient to have an LP done, however, after an extended discussion, the patient and his family decided that they did not want to pursue treatment with radiation or chemotherapy. The patient was counseled that he is very high risk and may have difficulty breathing and be placed on life support. The patient did not want this and requested to be made DNR at that time. Case management was consulted at this point for assistance in setting up hospice. Palliative Care was also consulted for further discussion of code status and goals of care. The patient and his family wished to seek comfort measures through hospice care and signed with [facility]. Dr. Gardner with Radiation/Oncology reviewed the patient's imaging and went to discuss the findings and plan with the patient and his family. Dr. Gardner felt that the imaging suggested a recurrence of the glioblastoma and given the patient's poor performance status and rapid decline, there are really few options that can be done in terms of treatment. Dr. Gardner felt the case will best be managed with steroids and hospice care. If the patient was to rapidly improve with the steroids, there is a chance that this could be lymphoma, however, it is thought that this is not likely to occur for Dr. Gardner. The patient was provided with contact information for Dr. Gardner, Dr. Leal, and the primary team with [facility] physician should he or the family have any questions or need anything on the next days. On the morning of March 02, 2019, the patient was deemed stable for discharge back to home. The patient has a daughter who is a nurse practitioner, who has agreed to monitor the patient for the next 48 hours until hospice can be fully in place. DISPOSITION: Stable. DISCHARGE INSTRUCTIONS: 1. Location: Home. 2. Diet: N.p.o., but allow comfort feeds and allow oral medication in liquid form. 3. Activity: As tolerated. 4. Follow up with Dr. Desiree Leal, Oncology. 5. Follow up with out of town physician in [place], [place]. Job ID: [id number]
== END 2019-03-02 13:40 | disposition hospice, home (50) | DRG 55 ==
LOC: ERS 22:30 → 2SW 02-28 00:11 → OBSVTOIN 03-01 14:57
PROVIDERS: ADMIT Family Medicine; ATTEND Family Medicine
DX: C71.7 Malignant neoplasm of brain stem (principal); Z66 Do not resuscitate; Z51.5 Encounter for palliative care; I10 Essential (primary) hypertension; F32.9 Major depressive disorder, single episode, unspecified; E78.2 Mixed hyperlipidemia; E78.00 Pure hypercholesterolemia, unspecified; Z79.899 Other long term (current) drug therapy; Z86.73 Personal history of transient ischemic attack (TIA), and cerebral infarction without residual deficits
CPT/HCPCS: 36415; 70450; 70553; 72100; 72156; 72157; 72158; 80053; 80061; 85025; 85610; 85730; J1100